=== PATIENT | male | born 1965 | race Caucasian/White ===

== ENCOUNTER 2016-08-01 13:40 | Outpatient (CLI) | payer OTHER ==
[~2016-08-01 13:40] MED LIST: COMBIVENT RESPIMAT IN; HYDROCHLOROTHIA25 MG PO; LEVOTHYROXINE112 MCG PO; LISINOPRIL10 MG PO; NEURONTIN100 MG PO; PERCOCET1 TA4 PO; PROCHLORPERAZINE5 MG PO; TRAZODONE HCL50 MG PO
--- NOTE | 2016-08-01 14:57 | DIAGNOSTIC IMAGING REPORT ---
PROCEDURE: XR SHOULDER 2 OR MORE VW-RIGHT INDICATION: RIGHT SHOULDER PAIN TECHNIQUE: Three views. COMPARISON: Right shoulder films 01/07/2006 FINDINGS: Osseous structures and joint spaces are normal. IMPRESSION: 1. Normal right shoulder.
== END 2016-08-01 23:00 ==
LOC: XR SRH 13:40
DX: M25.511 Pain in right shoulder (principal)